=== PATIENT | female | born 2000 ===

== ENCOUNTER 2024-05-03 03:46 | Emergency (ER) | payer OTHER ==
[2024-05-03] MEDS: Famotidine 20 MG Tab PO ONE (04:35)
[2024-05-03 04:55] LABS: ALANINE AMINOTRANSFERASE,ALT 244 U/L (12-78); ALKALINE PHOSPHATASE 192 U/L (46-116); ASPARTATE AMNIOTRANSFERASE,AST 242 U/L (15-37); BILIRUBIN TOTAL 1.2 mg/dL (0.2-1.0); BLOOD UREA NITROGEN,BUN 3 mg/dL (7-18); CALCIUM 9.3 mg/dL (8.5-10.1); CARBON DIOXIDE,CO2 34 mmol/L (21-32); CHLORIDE,CL 96 mmol/L (100-108); EST CRCL DRUG DOSING (CG) 59.01 mL/min; ESTIMATED GFR 81 mL/min (>60); GLUCOSE RANDOM 122 mg/dL (74-106); PROTEIN TOTAL,TP 8.1 g/dL (6.4-8.2); SODIUM,NA 142 mmol/L (140-148)
[2024-05-03 04:57] LABS: ANION GAP 14.9 mmol/L (5.0-14.0); POTASSIUM,K 2.9 mmol/L (3.6-5.2)
[2024-05-03] MEDS: Potassium Chloride 20 MEQ Tab.ER PO ONE (05:15)
== END 2024-05-03 05:36 ==
LOC: JP.ED 03:46
DX: F10.20 Alcohol dependence, uncomplicated (principal); E87.6 Hypokalemia; R74.01 Elevation of levels of liver transaminase levels; R12 Heartburn; R10.2 Pelvic and perineal pain; Y90.8 Blood alcohol level of 240 mg/100 ml or more; Z79.899 Other long term (current) drug therapy
CPT/HCPCS: 36415; 80053; 80307; 84702; 99283; A9270